=== PATIENT | female | born 1990 | race Caucasian/White ===

== ENCOUNTER 2021-04-09 22:57 | Inpatient (IN) | payer OTHER, BC, SELFPAY ==
[2021-04-09 23:14] VITALS: TEMP 36.2
[2021-04-09 23:30] VITALS: BP 120/82; PULSE 77
[2021-04-09 23:45] VITALS: BP 120/79; PULSE 92
[2021-04-10] VITALS (29 sets, daily range): BP systolic 104–130; BP diastolic 56–100; PULSE 64–174; RESP 15–20; TEMP 36.8–37.1; O2SAT 98; BMI 29.4
--- NOTE | 2021-04-10 00:20 | LDADM ---
This patient, Valentina Guerrero, was admitted to Labor/Delivery/Recovery 105 on 04/09/21 at 22:57. Plans for labor, pain management and were discussed with patient. Patient/family oriented to hospital policies and general routines including ID bracelet, bed and alarms, visiting hours, pain management, procedures, bathroom and other care routines, personal items, smoking policy, room service/diet and guest tray routines, security routines, and visiting hours. Patient/Family are encouraged to report perceived risks to care and to ask questions if they do not understand what they are told or what they should do. See OBIX for further documentation.
[2021-04-10 00:24] LABS: Basophils Percent Auto 0.3 % (0.2-1.2); Eosinophils Absolute Auto 0.1 K/mm3 (0-0.3); Eosinophils Percent Auto 1.1 % (0-4.4); Hematocrit 35.8 % (37.0-47.0); Hemoglobin 12.1 g/dL (12.0-15.0); Immature Granulocyte Absolute 0.06 K/mm3 (0.00-0.031); Immature Granulocyte Percent A 0.7 % (0-0.5); Lymphocytes Absolute Auto 2.02 K/mm3 (0.9-3.2); Lymphocytes Percent Auto 23.2 % (18.3-44.2); Mean Corpuscular HGB Conc 33.8 g/dl (32-36); Mean Corpuscular Hemoglobin 29.7 pg (26-34); Mean Corpuscular Volume 87.7 fl (80-100); Monocytes Absolute Auto 0.7 K/mm3 (0.1-0.6); Monocytes Percent Auto 8.2 % (2.6-8.5); Neutrophils Absolute Auto 5.8 K/mm3 (1.3-6.7); Neutrophils Percent Auto 66.5 % (45.5-73.1); Platelet Count Result 235 k/mm3 (150-375); Red Blood Count 4.08 M/mm3 (4.2-5.4); Red Cell Distribution Width 13.2 % (11.5-14.5); White Blood Count 8.7 K/mm3 (4.5-10.0)
[2021-04-10 07:18] LABS: Rapid Plasma Reagin Non-Reactive (NonReactive)
[2021-04-10] MEDS: LACTATED RINGERS 1,000 ML 125 ML IV CONT (07:33)
[2021-04-10] MEDS: OXYTOCIN 30 UNITS/NS 500 ML 30 UNITS/500 ML BAG IV CONT (07:34)
--- NOTE | 2021-04-10 07:50 | WPDHPUPDATE1 ---
History and Physical Update Update Date/Time: 04/10/21 07:50 31 yo who presents after SROM around 2100. She endorses good movement. She denies any vaginal bleeding. Her has been uncomplicated thus far. History and Physical has been reviewed, including an updated exam of the patient. There are NO changes in the patient's condition. Risks, benefits, and alternatives have been discussed and questions answered. Patient agrees to proceed with procedure. A/P: 31 at 39w who presents after SROM admit to L&D routine admission orders Rh+ GBS neg FHT cat 1 SROM continuous EFM will augment with pitocin as necessary
--- NOTE | 2021-04-10 07:54 | WPDANESEPP ---
Anes - Eval Pre Procedure Procedure: Labor epidural Date/Time: 04/10/21 07:54 Surgeon: Grace Preop Diagnosis: Abd pain with contractions Pre Op Diagnosis: Leaking Patient Data Age: 31 Gender: F Height: 5 ft 2 in Weight: 73 kg Last Vital Signs Temp 98.2 F 04/10/21 07:00 Pulse 94 04/10/21 07:00 BP 114/82 04/10/21 07:00 Allergies Allergy/AdvReac Type Severity Reaction Status Date / Time Cephalosporins Allergy Mild Unknown Verified 07/31/20 12:49 Penicillins Allergy Mild Unknown Verified 07/31/20 12:49 amoxicillin Allergy Unknown Unknown Verified 07/31/20 12:49 sulfamethizole Allergy Unknown Verified 07/31/20 12:49 trimethoprim Allergy Unknown Verified 07/31/20 12:49 Home Medications Medication Instructions Recorded Confirmed Type PNV cmb#95-ferrous fumarate-FA 1 tablet PO DAILY 03/15/21 04/10/21 History [] valacyclovir 500 mg PO DAILY 04/10/21 04/10/21 History Laboratory Tests 04/10/21 04/10/21 04/10/21 00:11 00:11 00:11 WBC 8.7 K/mm3 K/mm3 (4.5-10.0) RBC 4.08 M/mm3 L M/mm3 (4.2-5.4) Hgb 12.1 g/dL g/dL (12.0-15.0) Hct 35.8 % L % (37.0-47.0) MCV 87.7 fl fl (80-100) MCH 29.7 pg pg (26-34) MCHC 33.8 g/dl g/dl (32-36) RDW 13.2 % % (11.5-14.5) Plt Count 235 k/mm3 k/mm3 (150-375) MPV 10.0 fl fl (7.4-10.4) Immature Gran % (Auto) 0.7 % H % (0-0.5) Neut % (Auto) 66.5 % % (45.5-73.1) Lymph % (Auto) 23.2 % % (18.3-44.2) [place] % (Auto) 8.2 % % (2.6-8.5) Eos % (Auto) 1.1 % % (0-4.4) Baso % (Auto) 0.3 % % (0.2-1.2) Lymph # (Auto) 2.02 K/mm3 K/mm3 (0.9-3.2) [place] # (Auto) 0.7 K/mm3 H K/mm3 (0.1-0.6) Eos # (Auto) 0.1 K/mm3 K/mm3 (0-0.3) Baso # (Auto) 0.0 K/mm3 K/mm3 (0.0-0.1) Abs Immat Gran (auto) 0.06 K/mm3 H K/mm3 (0.00-0.031) Absolute Neuts (auto) 5.8 K/mm3 K/mm3 (1.3-6.7) Absolute Nucleated RBC 0.0 K/mm3 K/mm3 (0.0-0.012) Nucleated RBC % 0.0 % % (0.0-0.2) RPR Non-reactive (NonReactive) Blood Type O Positive Antibody Screen Negative Patient hx anesthesia problems: none Family hx anesthesia problems: none [facility] Past Medical History Medical History (Updated 04/10/21 @ 07:55 by Fausto Bishop CRNA) Over weight and not yet delivered Family History Family History Father Hypertension Grandparent Hypertension Cerebrovascular accident Family history of malignant neoplasm of brain Other Diabetes mellitus Social History Social History Smoking status: Never smoker Second hand tobacco smoke exposure: No Alcohol intake: current Substance use: never Gender identity (if verbalized by the patient): Female Spiritual care concerns: No Exam Day of Procedure 04/10/21 07:54 Patient weight: overweight Airway: Mallampati scale class II Neurological: alert and oriented
[2021-04-10] MEDS: fentaNYL CITRATE INJ (*CRX) 100 MCG/2 ML VIAL 50 MCG IV PUSH (10:10)
[2021-04-10] MEDS: miSOPROStol 200 MCG TABLET 1000 MCG (11:21)
--- NOTE | 2021-04-10 11:25 | PM.OBPRVD ---
OB - Delivery Note Procedure Procedure: Patient pushed for a spontaneous vaginal delivery. The fetus was delivered atraumatically and placed on the maternal abdomen. The cord was clamped and cut after 1 minute of life. The cord was double clamped and cut and a segment of cord was collected for cord gases. Cord blood was collected for blood type and Coomb's testing. The placenta delivered spontaneously and was noted to be intact. The perineum was inspected and there was a 1st degree perineal laceration. The laceration was repaired with 3-0 vicryl in the usual fashion. Pt was noted to have a large gush of bleeding after the placenta was removed. Pt has a history of post hemorrhage of 1500 mL in her last delivery. 800 mcg of cytotec was placed [facility]. The uterus was firm and good hemostasis was noted. The patient and fetus were stable in the delivery room. Intrapartal events: None Induction method: none Delivery augmentation: pitocin Delivery monitor: external FHT Route of delivery: Episiotomy description: None Laceration Description: Perineal - 1st Degree Delivery repair: vicryl Specimen: No Quantitative Blood Loss (ml): 350 Anesthesia type: None Disposition: floor () Complications: No immediate complications Baby Date of : 04/10/21 Time of : 11:14 Weeks of gestation at delivery: 39 gender: Male Weight (pounds): 7 Weight (ounces): 14 presentation: vertex position: Right Occiput Anterior Placenta delivery description: Spontaneous cord vessel description: 3 Vessels score one minute: 8 score five minutes: 9
[2021-04-10] MEDS: OXYTOCIN 30 UNITS/NS 500 ML 30 UNITS/500 ML BAG 125 UNITS IV CONT (11:37)
[2021-04-10] MEDS: IBUPROFEN 600 MG TABLET PO ×2 (11:54→17:16)
[2021-04-10] MEDS: BENZOCAINE 20% AER SPR (*SP) 56 GM CAN 1 SPRAY TOPICAL (13:15)
[2021-04-10] MEDS: WITCH HAZEL 40 PADS 1 PAD TOPICAL (13:15)
--- NOTE | 2021-04-10 13:40 | PC.NURSE ---
Patient transferred to post room #283 per wheelchair. Support person present. Oriented to unit, room, information board, rooming in, admission packet and security measures. Patient verbalizes understanding.
[2021-04-10] MEDS: ACETAMINOPHEN 325 MG TABLET 650 MG PO (14:24)
--- NOTE | 2021-04-10 16:34 | PC.NURSE ---
Reviewed breast pump care and usage, pumping schedule, nipple care, and collection and storage of breast milk. Encouraged [id number], breast massage and manual expression to stimulate supply. Pumping log provided and reviewed. Assessed patient for correct flange size, placement and draw. Patient verbalizes and demonstrates understanding of instructions.
[2021-04-10] MEDS: DOCUSATE SODIUM 100 MG CAPSULE PO (17:16)
[2021-04-10] MEDS: LANOLIN (LANSINOH) 7.5 GM CREAM 1 APPLIC TOPICAL (17:17)
[2021-04-11] VITALS: BP 107/70; PULSE 70; RESP 16; TEMP 36.7; O2SAT 98
[2021-04-11] MEDS: IBUPROFEN 600 MG TABLET PO ×3 (00:03→16:45)
[2021-04-11 04:00] VITALS: BP 119/66; PULSE 65; RESP 16; TEMP 36.4; O2SAT 100
[2021-04-11 05:36] LABS: Hematocrit 29.6 % (37.0-47.0); Hemoglobin 10.3 g/dL (12.0-15.0)
--- NOTE | 2021-04-11 06:40 | PM.OBDSVD ---
DS: Admitting Diagnosis Admitting Diagnosis Admitting Diagnosis: spontaneous rupture of membranes intrauterine at term OB - DS: Summary OB Procedures : None OB Procedures Intrapartum: Spontaneous Vag Delivery OB Procedures: : None Status at Discharge Functional status at discharge: independent ambulation Overall status at discharge: patient is back to baseline Time Spent with Patient Time attestation: Total time spent providing and/or coordinating discharge services: Time spent: Less than 30 minutes Exam Const: General: comfortable and no acute distress Resp: Effort & Inspection: normal respiratory effort Auscultation: clear to auscultation bilaterally Cardio: Rate: regular rate GI: GI Palp: Yes Soft to palpation Auscultation: normal bowel sounds Other: Fundus firm below umbilicus Psych: Appearance: grossly normal Mental Status: mental status grossly normal Affect: normal affect DS: Data Data Completed and Pending Labs on day of discharge: Labs from last 24 hours 04/11/21 04/10/21 04:06 00:11 Hgb 10.3 L Hct 29.6 L RPR Non-reactive Discharge Plan Discharge Discharging Clinician: Tristan Edwards Patient Disposition: Home, Self-Care Activity: as tolerated and pelvic rest Diet: regular Patient Instructions: Antibiotic Form, Vaginal Delivery (DC) Stand Alone Forms: General Discharge Information Follow-up/Referrals: Tristan Edwards MD [Physician] - 4 Weeks Discharge Medications: New acetaminophen [Mapap (acetaminophen)] 325 mg Tablet 650 mg PO Q6H PRN (Reason: Mild Pain (1-3) Or Headache) Qty: 30 RF: 0 ibuprofen 600 mg Tablet 600 mg PO Q6H PRN (Reason: Cramping) Qty: 30 RF: 0 Continued PNV cmb#95-ferrous fumarate-FA [] 28 mg iron- 800 mcg Tablet 1 tablet PO DAILY RF: 0 valacyclovir 500 mg tablet 500 mg PO DAILY RF: 0 Date of admission: 04/09/21 22:57 Primary Care Provider: Luis Aguilera Admitting Provider: Tristan Edwards Attending physician on admission: Tristan Edwards Condition: Stable
[2021-04-11 07:43] VITALS: BP 116/60; PULSE 76; RESP 16; RESP 18; TEMP 36.7; O2SAT 100
[2021-04-11] MEDS: MULTIVIT/MIN/PREN/FOL AC/IRON TABLET 1 TAB PO (08:23)
[2021-04-11] MEDS: DOCUSATE SODIUM 100 MG CAPSULE PO ×2 (08:23→16:45)
--- NOTE | 2021-04-11 11:00 | PC.NURSE ---
Patient was given the opportunity to view the discharge video Mother & Baby Care, The First Two Weeks and to ask questions. Patient declined viewing the video and has been given the mother/baby guide for home reference.
[2021-04-12 10:28] VITALS: BP 116/73; PULSE 76; RESP 20; TEMP 36.7; O2SAT 100
== END 2021-04-11 17:13 | disposition home or self-care (01) | DRG 807 ==
LOC: ANHLDR 04-10 08:33 → ANHOB2 04-10 13:52
PROVIDERS: Admitting Provider Student in an Organized Health Care Education/Training Program; PCP Family Medicine; Visit Provider Student in an Organized Health Care Education/Training Program
DX: O98.32 Other infections with a predominantly sexual mode of transmission complicating childbirth (principal); Z37.0 Single live birth; Z3A.39 39 weeks gestation of pregnancy; B00.9 Herpesviral infection, unspecified; O70.0 First degree perineal laceration during delivery
CPT/HCPCS: 36415; 84112; 85014; 85018; 85025; 86592; 86850; 86900; 86901; A9270; J2590; J3010; J7120